=== PATIENT | female | born 1965 ===

== ENCOUNTER 2017-06-13 08:40 | Outpatient (CLI) | payer OTHER ==
--- NOTE | 2017-06-13 11:55 | MMO ---
BILATERAL SCREENING MAMMOGRAMS: Date: 06/13/17 Comparison made to prior exam from [facility] dated November 2014. FINDINGS: Scattered fibroglandular densities. There is evidence of a new tiny nodular density in the outer mid left breast when compared to prior study. This measures in the 5.0 mm range. Recommend diagnostic jemima dy to further evaluate this density. IMPRESSION: BIRADS 0: Incomplete: Need Additional Imaging Evaluation and/or Prior Mammograms for Comparison Further imaging of the left breast required. The facility will notify the patient of the need for additional imaging services. POS: [facility]
== END 2017-06-13 08:41 | disposition home or self-care (01) ==
LOC: SCSMAMMO 08:40
PROVIDERS: ATTEND Family Medicine
DX: Z12.31 Encounter for screening mammogram for malignant neoplasm of breast (principal); Z80.3 Family history of malignant neoplasm of breast
CPT/HCPCS: 77067

== ENCOUNTER 2017-07-15 08:10 | Outpatient (CLI) | payer OTHER | END 2017-07-15 08:11 | disposition home or self-care (01) | LOC: BICMAMMO 08:10 | PROVIDERS: ATTEND Family Medicine | DX: N63.0 Unspecified lump in unspecified breast (principal) | CPT/HCPCS: G0279 ==